=== PATIENT | male | born 1970 | race Hispanic/Latino ===

== ENCOUNTER 2024-07-20 05:58 | Day surgery (SDC) | payer BC ==
[2024-07-18 09:17] VITALS: BP 184/93; PULSE 61; RESP 16; TEMP 98
[2024-07-18 09:21] LABS: BASOPHILS # (AUTO) 0.07 K/uL (0.00-0.20); EOSINOPHILS # (AUTO) 0.51 K/uL (0.00-0.70); EOSINOPHILS % (AUTO) 7.6 % (0.0-8.0); HEMATOCRIT 36.6 % (42-54); IMMATURE GRANULOCYTE ABSOLUTE 0.01 K/uL (0-1); LYMPHOCYTES % (AUTO) 29.1 % (21.0-51.0); MEAN CORPUSCULAR HEMOGLOBIN 30.3 pg (27.0-33.0); MEAN CORPUSCULAR HGB CONC 32.5 g/dL (32.0-36.0); MEAN CORPUSCULAR VOLUME 93.1 fL (79-99); MONOCYTES # (AUTO) 0.6 K/uL (0.1-1.0); MONOCYTES % (AUTO) 8.8 % (3.0-13.0); NEUTROPHILS # (AUTO) 3.6 K/uL (1.8-7.7); NEUTROPHILS % (AUTO) 53.4 % (40.0-77.0); PLATELET COUNT (AUTO) 194 K/uL (130-400); RED BLOOD CELL COUNT(AUTO) 3.93 MIL/uL (4.50-6.20); RED CELL DISTRIBUTION WIDTH 12.8 % (11.0-15.5); WHITE BLOOD COUNT (AUTO) 6.7 K/uL (4.8-10.8)
[2024-07-18 09:28] LABS: CREATININE 5.4 mg/dL (0.5-1.3); POTASSIUM 4.9 mmol/L (3.5-5.1)
[2024-07-18 09:32] LABS: INR 1.06 (0.85-1.15); PROTHROMBIN TIME 11.4 SEC (9.6-11.6)
[2024-07-18 09:33] LABS: PARTIAL THROMBOPLASTIN TIME 31.5 SEC (26.3-35.5)
[2024-07-18 10:05] LABS: B-TYPE NATRIURETIC PEPTIDE 791 pg/mL (0-100)
--- NOTE | 2024-07-18 10:07 | EKG ---
[facility] Test Date: 2024-07-18 Test Time: 10:00:59 Pat Name: MARIO DOMÍNGUEZ Department: [facility], [facility] Room: Gender: M Box Blank Machine Feeder: [id number] : 1970 Requested By: MARCELO OLSON Order Number: [id number] Reading MD: Neo Lucero Measurements Intervals [place] Rate: 63 P: 60 FL: 197 QRS: 14 QRSD: 83 T: 59 QT: 466 QTc: 479 Interpretive Statements Sinus rhythm No previous ECG available for comparison Electronically Signed On 07-19-2024 19:30:55 APPRENTICE TECHNICIAN by Neo Lucero Please click the below link to view image of tracing.
--- NOTE | 2024-07-18 10:55 | HMCIMG ---
CHEST 1VW REASON: PREOP COMPARISON: None. FINDINGS: Single view of the chest was obtained. Lungs are clear. Heart size is normal. There is no pulmonary vascular congestion. Mediastinum and bony thorax appear unremarkable. IMPRESSION: 1. Normal single view chest x-ray.
--- NOTE | 2024-07-19 13:47 | NUR ---
REPORT REPORTED BNP TO KASSANDRA HEADLEY NP. OK TO PROCEED
[~2024-07-20] VITALS: Ht 188 cm; Wt 83.9 kg
[2024-07-20] VITALS (9 sets, daily range): BP systolic 122–164; BP diastolic 67–83; PULSE 62–66; RESP 14–18; TEMP 97.2–97.9
[~2024-07-20 05:58] MED LIST: APIX5TAB PO; INSU3INS3 SQ; METO25TA6 PO; NIFE-79 PO; TELM40TA8 PO; TIRZ2.5P SQ
[2024-07-20] MEDS ORDERED: LIDOCAINE HCL 400MG/20ML VIAL ONE (07:09)
[2024-07-20] MEDS ORDERED: IOHEXOL 350 MG/ML 100ML INFUS..BTL IV ONE ×2 (07:09→07:11)
[2024-07-20] MEDS ORDERED: HEParin 10,000 UNIT/10ML (1,000 UNIT/ML) VIAL ONE (07:10)
[2024-07-20] MEDS ORDERED: NITROGLYCERIN 50MG VIAL ONE (07:10)
[2024-07-20] MEDS ORDERED: niCARDIpine 25MG INJ IV ONE (07:10)
[2024-07-20] MEDS ORDERED: HEParin-NS 1,000 UNIT/500 ML 1,000 ML IV ONE (07:10)
[2024-07-20] MEDS ORDERED: MIDAZOLAM HCL 1 MG/ML 2ML VIAL ONE (07:29)
[2024-07-20] MEDS ORDERED: FENTanyl CITRate PF 50 MCG/1 ML 2ML VIAL ONE (07:29)
[2024-07-20] MEDS: 0.9%NACL 1000ML 1,000 ML IV ONE (08:04)
--- NOTE | 2024-07-20 09:19 | PRN ---
PROCEDURE NOTE Indications: 1. ESRD on HD 2. Paroxysmal atrial fibrillation, on anticoagulation 3. Low normal left ventricle systolic function (LVEF 50-55% by echocardiogram done on 03/21/2023) 4. HTN 5. HLP 6. DM2 7. Normal Lexiscan stress test done on 04/06/2023 Procedures: LHC, coronary angiogram, femoral angiogram Introduction: After informed written consent was obtained, the patient was brought to the Catheterization Lab in the usual fasting state. Following sterile prep and drape, a time out was performed, then moderate sedation was administered, 1mg of Versed and 50mcg of Fentanyl, then 1% Lidocaine was infiltrated into the right femoral groin. Using a Modified Seldinger technique, a 6Fr Sheath was inserted into the right common femoral artery. While under fluoroscopic guidance, diagnostic coronary catheters were advanced over a wire into the central circulation where they were aspirated, flushed and placed to pressure monitoring, once the wire was removed. Coronary Angio: The left and right coronary arteries were engaged with appropriate catheters and angiography was performed under continuous pressure monitoring. Left Heart Catheterization: A JR 4 catheter was inserted into the LV and the pressure was recorded, then the catheter was removed from the LV. Cardiac Findings: Right dominant system LM: Large caliber vessel with 40% stenosis in the distal left main. The vessel bifurcates into the LAD and LCX. LAD: Medium caliber vessel with diffuse 30% stenosis in the proximal LAD and diffuse 80% stenosis in the distal LAD. ANNA three blood flow distally. Diagonal 1: Small caliber vessel with mild luminal irregularities Diagonal 2: Small caliber vessel with 90% stenosis in the ostial segment of the vessel LCx: Medium caliber vessel with serial lesions each with 80% stenosis in the mid and distal segments of the LCX Ramus one: Small caliber vessel with mild luminal irregularities OM1: Medium caliber vessel with 90% stenosis in the proximal segment of the vessel OM2: Small caliber vessel with mild luminal irregularities OM3: Medium caliber vessel with 90% stenosis in the proximal segment of the vessel RCA: Medium caliber vessel with diffuse 60% stenosis in the mid segment of the RCA and 80% stenosis in the distal RCA (before bifurcation). RPDA: Medium caliber vessel with 80% stenosis in the proximal segment vessel RPLV: Medium caliber vessel with mild luminal irregularities LVEDP: 17mmHG Medications given: Versed 2mg, Fentanyl 75mcg, nitroglycerin 200mcg x 1 dose Coronary Intervention: None Complications: None Conscious Sedation Monitoring: Under my direct order and supervision, medication for moderate conscious sedation was administered by the nursing staff and the patients level of consciousness and physiological status was monitored by an independent trained nurse. Closure of Access Site: After the case completed the sheath was pulled and a 6Fr Angioseal was deployed in the right common femoral artery without complication. Conclusion: 1. 3V + branch vessel CAD (LAD, LCX, RCA, Diag 2, OM1, OM3 and RPDA 2. Paroxysmal atrial fibrillation, on anticoagulation 3. False negative Lexiscan stress test done 04/06/2023 4. Low normal left ventricle systolic function (LVEF 50-55% by echocardiogram done on 03/21/2023) 5. ESRD, on HD, pending kidney transplant 6. HTN 7. HLP 8. DM2 Recommendation: 1. Continue goal-directed medical therapy 2. Resume anticoagulation tonight 3. 4 hours of bedrest 4. Groin precautions 5. No IV fluids 6. We will consult CT surgery for CABG plus surgical ligation of the left atrial appendage consideration 7. Okay to DC once bedrest is complete and the right groin is soft, and free of bruising, bleeding, and or hematoma formation. 8. No driving for the next 48 hours 9. No heavy lifting or strenuous exercise for the next two weeks MARCELO OLSON MD Jul 20, 2024 09:19
[2024-07-20] MEDS ORDERED: DEXTROSE 50%-WATER 50 ML DISP.SYRIN IV PRN (09:30)
[2024-07-20] MEDS ORDERED: GLUCAGON 1MG KIT 1 MG ML IM PRN (09:30)
== END 2024-07-20 12:40 | disposition home or self-care (01) ==
LOC: DAH 05:58
PROVIDERS: ATTEND Internal Medicine Cardiovascular Disease
DX: I48.0 Paroxysmal atrial fibrillation (principal); I25.10 Atherosclerotic heart disease of native coronary artery without angina pectoris; I12.0 Hypertensive chronic kidney disease with stage 5 chronic kidney disease or end stage renal disease; E11.22 Type 2 diabetes mellitus with diabetic chronic kidney disease; N18.6 End stage renal disease; R01.1 Cardiac murmur, unspecified; E78.5 Hyperlipidemia, unspecified; Z99.2 Dependence on renal dialysis; Z76.82 Awaiting organ transplant status; Z79.4 Long term (current) use of insulin; Z79.01 Long term (current) use of anticoagulants; Z79.899 Other long term (current) drug therapy
CPT/HCPCS: 80048; 83880; 85025; 85610; 85730; 36415; 71045; 93005; 93458; 82948; C1894 ×2; C1760; J3010; J3490 ×2; J7030; J2250; J1644; Q9967 ×2; A4215; A4222; A4221; A4663; A4216; A4606; Q9965 ×2; A4223 ×3; 99156; 99157